=== PATIENT | female | born 1960 | race Caucasian/White ===

== ENCOUNTER 2016-05-01 07:59 | Emergency (ER) | payer OTHER ==
--- NOTE | 2016-05-01 08:03 | UCPHY ---
H & P Time Seen by Provider: 05/01/16 08:02 Patient Type: Established HPI/ROS: CHIEF COMPLAINT: Hoarseness, loss of voice, sore throat HISTORY OF PRESENT ILLNESS: The patient presents to the ED with a 2 day history of hoarseness and mild sore throat. The patient denies fever, cough, congestion. She denies flu-like illness. The patient denies abdominal pain, vomiting or diarrhea. The patient reports her symptoms are mild in nature. The patient is currently a schoolteacher. She has been exposed to strep throat. The patient denies prior history of strep throat. She denies significant past medical history. REVIEW OF SYSTEMS: A comprehensive 10 point review of systems is otherwise negative aside from elements mentioned in the history of present illness. Past Medical/Surgical History: Past medical history: Migraines Smoking Status: Former smoker Physical Exam: General Appearance: Alert, no distress Eyes: Pupils equal and round no pallor or injection ENT, Mouth: Mild pharyngeal erythema, no peritonsillar mass, no exudate Respiratory: There are no retractions, lungs are clear to auscultation Cardiovascular: Regular rate and rhythm Gastrointestinal: Abdomen is soft and nontender, no masses, bowel sounds normal Neurological: A&O, normal motor function, normal sensory exam, normal cranial nerves Skin: Warm and dry, no rashes Musculoskeletal: Neck is supple nontender Extremities: symmetrical, full range of motion Constitutional: Initial Vital Signs Temperature (C) 36.9 C 05/01/16 08:19 Heart Rate 70 05/01/16 08:19 Respiratory Rate 16 05/01/16 08:19 Blood Pressure 146/92 H 05/01/16 08:19 O2 Sat (%) 97 05/01/16 08:19 O2 Delivery Mode Room Air Allergies/Adverse Reactions: hydrocodone Allergy (Verified 05/01/16 08:21) Home Medications: Medication Instructions Recorded IMITREX 07/09/15 Medical Decision Making ED Course/Re-evaluation: The patient presents to the ED with symptoms consistent with a mild viral laryngitis. She has no evidence of a peritonsillar mass, retropharyngeal abscess or evidence of airway compromise. Her vital signs are stable and she is in no acute distress. Patient's strep test is negative. At this point time she is advised to continue conservative treatment with fluids, voice rest and Tylenol and ibuprofen as needed. The patient is given customary return precautions and aftercare instructions. Differential Diagnosis: Differential diagnosis considered includes viral laryngitis, viral pharyngitis, streptococcal pharyngitis - Data Points Laboratory Results: 05/01/16 05/01/16 Unknown 08:20 Group A Strep Screen NEGATIVE (NEGATIVE) Group A Strep DNA Pending Departure - Departure Clinical Impression: Laryngitis Condition: Good Instructions: Laryngitis (ED) Additional Instructions: 1. Please return to the emergency department for difficulty breathing, worsening symptoms, high fever or other concerns. 2. Please follow up with your primary care provider as needed. 3. Your rapid strep test was negative in the urgent care. We will contact you if your strep DNA test or culture becomes positive. Referrals: KAELYN CONTRERAS [Primary Care Provider] - As per Instructions - PQRS PQRS Measurement: Not applicable
[2016-05-01 08:21] VITALS: BP 146/92; PULSE 70; RESP 16; TEMP 98.4; O2SAT 97
== END 2016-05-01 08:35 | disposition home or self-care (01) ==
LOC: CED 07:59
DX: J04.0 Acute laryngitis (principal)
CPT/HCPCS: 87880-PO; G0463-PO